=== PATIENT | male | born 1990 | race Caucasian/White ===

== ENCOUNTER 2020-03-16 10:50 | Outpatient (REF) | payer OTHER, SELFPAY ==
[2020-03-16 11:42] LABS: Alanine Aminotransferase 21 U/L (0-40); Albumin Level 5.1 g/dL (3.5-5.0); Alkaline Phosphatase 56 U/L (39-117); Anion Gap 12 (12-20); Aspartate Amino Transferase 15 U/L (5-37); Bilirubin Total 1.8 mg/dL (0.0-1.0); Blood Urea Nitrogen 9 mg/dL (9-16); Calcium 9.5 mg/dL (8.4-10.2); Carbon Dioxide 25 mmol/L (22-29); Chloride 108 mmol/L (96-108); Cholesterol 223 mg/dL; Estimated Glomerular Filt Rate > 60; Glucose Fasting 97 mg/dL (60-99); HDL Cholesterol 43 mg/dL; LDL Cholesterol Calculated 169 mg/dl; Potassium 4.2 mmol/l (3.3-5.1); Sodium 141 mmol/L (135-145); Total Protein 7.7 g/dL (6.5-8.0); Triglycerides 58 mg/dL
[2020-03-16 12:02] LABS: TSH reflex Free T4 0.83 mIU/mL (0.32-4.0)
[2020-03-18 03:38] LABS: HIV AB/AG Nonreactive (Nonreactive); HIV Num 1 0.08 S/CO (0.00-0.99)
[2020-03-18 03:50] LABS: Syphilis Screen Nonreactive (Nonreactive)
== END 2020-03-16 10:51 | disposition home or self-care (01) ==
LOC: HO.LAB 10:50
PROVIDERS: PCP Family Medicine; Visit Provider Family Medicine
DX: R73.9 Hyperglycemia, unspecified (principal); Z11.3 Encounter for screening for infections with a predominantly sexual mode of transmission; Z00.00 Encounter for general adult medical examination without abnormal findings
CPT/HCPCS: 80053; 80061; 82947; 84443; 86780; 87389

== ENCOUNTER → 2020-03-19 15:49 | Outpatient (REF) | payer OTHER, SELFPAY | LOC: HO.CARD 15:49 | PROVIDERS: PCP Family Medicine; Visit Provider Family Medicine | DX: Z13.89 Encounter for screening for other disorder (principal) ==

== ENCOUNTER → 2020-04-03 13:45 | Outpatient (REF) | payer OTHER, SELFPAY ==
--- NOTE | 2020-04-03 13:49 | CA_ITS ---
Transthoracic Echocardiogram Patient (Last, First, Middle): Rahat Stahl, Gender: Male Date of : 1990 Age: 30 Procedure Date: 04/03/2020 Procedure Type: Transthoracic Echocardiogram Location: OP Height: 172.72 cm Weight: 90.72 kg BSA: 2.04 m2 Heart Rate: bpm BP: 122 / 68 mmHg [employer]: Referring MD: Jose Juan Liu MD Symptoms: R01.1 - Cardiac murmur, unspecified Study Quality: Good ECG Rhythm: Sinus Conclusions: - The left ventricular systolic function is normal. The visually estimated ejection fraction is between 60-65%. - No obvious valvular pathology seen on this study. Findings Left Ventricle Normal left ventricular cavity size. There is normal left ventricular wall thickness. The left ventricular systolic function is normal. The visually estimated ejection fraction is between 60-65%. There is no evidence of regional wall motion abnormalities. Diastolic function is normal for age. Right Ventricle Normal right ventricular cavity size and systolic function. Atria Both atria are normal in size. Aortic Valve There is a normal trileaflet aortic valve. There is no aortic valve stenosis. There is no aortic valve regurgitation. Mitral Valve The mitral valve appears normal. There is trace mitral valve regurgitation. There is no mitral valve stenosis. Pulmonic Valve The pulmonic valve was not well visualized. There is trace pulmonic valve regurgitation. Tricuspid Valve Normal tricuspid valve structure. There is trace tricuspid valve regurgitation. The pulmonary artery systolic pressure is normal. Great Vessels The aortic annulus, sinuses of valsalva, and asc aorta are normal in size. Venous The inferior vena cava is normal in size and collapses greater than 50% with inspiration. Pericardium/Pleural There is no evidence of pericardial effusion. Prior Study Comparison No prior study available for comparison. Recommendations, Care & Conclusions No obvious valvular pathology seen on this study. Measurements 2D Linear Measurements IVSd: 0.91 0.6-0.9/0.6-1.0 cm LVIDd: 3.89 3.9-5.3/4.2-5.9 cm LVIDd Index: 1.91 2.4-3.2/2.2-3.1 cm/m2 LVIDs: 2.59 2.0-3.6 cm LVPWd: 0.93 0.7-1.1 cm Ao Root: 3.00 2.1-3.5 cm LA Diam: 2.90 2.7-3.8/3.0-4.0 cm LAIDs Index: 1.42 1.5-2.3 cm/m2 LV Mass: 135.05 67-162/88-224 g LV Mass Index: 66.20 43-95/49-115 g/m2 LVOT Diam: 2.00 3.0+(-)1.3 cm Mitral Valve MV Pk E: 1.05 MV PK A: 0.67 MV Decel Time: 232.00 E/A: 1.60 E'Lateral: 13.90 E'Medial: 13.40 E/E' Med: 7.80 E/E' Lat: 7.60 PHT: 68.00 MVA PHT: 3.24 Decel [place]: 4.53 Aortic Valve AoV Pk Walter: 1.86 AoV Mn Walter: 1.16 AoV VTI: 0.30 AoV Pk Grad: 14.00 Aov Mn Grad: 6.00 GLORIA Cont.VTI: 3.09 LVOT LVOT Pk Walter: 1.61 LVOT Mn Walter: 1.02 LVOT VTI: 0.30 LVOT Pk Grad: 10.00 LVOT Mn Grad: 5.00 LVOT Diam: 2.00 LVOT Area: 3.14 Diastolic Function MV Pk E: 1.05 MV Pk A: 0.67 E/A: 1.60 E'Medial: 13.40 E/E' Med: 7.80 E' Laterial: 13.90 E/E' Lat: 7.60 Tricuspid Valve TR Pk Walter: 1.94 TR Pk Grad: 15.00 Great Vessels Aorta Ao Root-2D: 3.00 2.0-3.7 cm Ao Asc: 2.80 2.1-3.4 cm Pulmonary Valve PV Pk Walter: 1.22 Peak PV Grad: 6.00 Updated in Other Vendor System with Status of Final Bashir Smith MD electronically signed on 04/06/2020 11:53:43 AM with status of Final
== END ==
LOC: HO.CARD 13:45
PROVIDERS: PCP Family Medicine; Visit Provider Family Medicine
DX: R01.1 Cardiac murmur, unspecified (principal)
CPT/HCPCS: 93306